=== PATIENT | female | born 1960 | race Caucasian/White ===

== ENCOUNTER 2016-06-30 05:33 | Day surgery (SDC) | payer MEDICAID ==
[2016-06-29 12:16] LABS: HEMATOCRIT 44.1 % (36.0-48.0); HEMOGLOBIN 14.6 g/dL (12-16); MCH 30.7 pg (26.0-34.0); MCHC 33.1 g/dL (31.0-37.0); MCV 92.6 fL (80.0-100.0); MEAN PLATELET VOLUME 10.3 fL (7.4-10.4); RBC 4.76 10x6/uL (4.00-5.40); RDW 12.7 % (11.5-14.5); WBC 8.5 10x3/uL (4.8-10.8)
[~2016-06-30] VITALS: Ht 177.8 cm; Wt 88.5 kg
[~2016-06-30 05:33] MED LIST: ADDERALL 20 MG20 M1 PO; BACLOFEN10 MG PO; DILAUDID2 MG PO; DIOVAN40 MG PO; DOXEPIN HCL10 MG PO; HYDROCODONE-APA1 TAB PO; KLONOPIN1 MG PO; MELATONIN 3 MG1 TAB PO; MULTI-DAY VITAM1 TAB PO; NIACIN100 MG; NORCO 10/325 TA1 TA1 PO; RESTORIL15 MG PO; SOMA350 MG PO; TOPAMAX50 MG; TOPAMAX50 MG PO; VICOPROFEN 7.5/1 TAB PO
[2016-06-30 07:49] VITALS: BP 110/76; Ht 177.8 cm; Wt 88.5 kg
[2016-06-30] MEDS ORDERED: MEPERIDINE HCL50 MG PO (10:12)
--- NOTE | 2016-06-30 10:31 | NUR ---
THE PATIENT REPORTS AN EVERYDAY PAIN OF A 7 ON THE 0-10 SCALE TO HER KNEE.
--- NOTE | 2016-06-30 10:35 | NUR ---
THE PATIENT IS NOW SEDATED AND SLEEPING REPORTING A 6 WHEN AWAKENED. SLURRING OF SPEECH ALSO NOTED
--- NOTE | 2016-06-30 10:37 | NUR ---
THE PATIENT REPORTS HER PAIN IS TOLERABLE
--- NOTE | 2016-06-30 13:25 | NUR ---
1130 IV DC WITH CATHER TIP INTACT CRUTCHES TRAINING DONE BY PT NOW WAITING ON CRUTCHES
--- NOTE | 2016-07-02 10:48 | OP ---
PATIENT NAME: JEWELL SAUCEDA MEDICAL RECORD: [id number] :56 LOCATION:D.OPS ADMISSION DATE: SURGEON: JOSELYN BARTLETT MD DATE OF OPERATION: 06/30/2016 PREOPERATIVE DIAGNOSIS: Lateral meniscus tear. POSTOPERATIVE DIAGNOSES: Lateral meniscus tear and medial meniscus tear. PROCEDURES: 1. Arthroscopic partial medial meniscectomy. 2. Arthroscopic partial lateral meniscectomy. SURGEON: Joselyn Bartlett MD. ANESTHESIA: General. INTRAOPERATIVE COMPLICATIONS: None. SUMMARY OF PATHOLOGIC FINDINGS: The patient's previously placed ACL graft was in excellent condition. The patient has complex tear of the posterior horn of the lateral meniscus. Furthermore, the patient has complex tear of the medial meniscus. OPERATIVE SUMMARY IN DETAIL: After obtaining the appropriate preoperative orthopedic surgery consents as well as anesthetic consultation, evaluation and clearance, the patient was brought to the operating room and placed on the operating table in supine position. After general laryngeal mask airway was administered, tourniquet was placed about the proximal aspect of the right lower extremity. Right lower extremity was then prepped and draped in routine sterile fashion. The leg was elevated and exsanguinated, tourniquet inflated to 350 mmHg. Routine inferolateral portal was established followed by superomedial portal and inferomedial portal. Diagnostic arthroscopy did show the above findings. Attention was first turned to the medial meniscus. Arthroscopic resector along with a meniscotome was utilized to debride the medial meniscus back to stable meniscal elements. Having completed this, some frayed edges of the graft were taken down and the knee was placed in the cqusmj-xk-sity position where the deep posterior horn of the lateral meniscus tear was noted. This was taken down serially and sequentially with a meniscotome as well as an arthroscopic resector. 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 Having completed this, a mild trochlear chondroplasty was done. The patient's knee was then injected with 30 cc of 0.25% Marcaine with epinephrine and 80 mg of Depo-Medrol. Arthroscopy portals were closed in routine interrupted fashion using 4-0 Prolene. Sterile dressings were applied. The patient was awakened, taken to recovery room in stable condition. All final needle and sponge counts were correct. TRANSINT:[id number] Voice Confirmation ID: [id number] DOCUMENT ID: [id number] OPERATIVE REPORT [id number] JEWELL SAUCEDA MD, JOSELYN MANUEL at 1048 CC: [id number] DICTATION DATE: 06/30/16 1016 MOTORCYCLE MECHANIC APPRENTICE: 06/30/16 1217 [facility] 06/30/16 [place] [id number] [place] [id number]
== END 2016-06-30 12:30 | disposition home or self-care (01) ==
LOC: D.OPS 05:33 → D.PAN 09:15 → D.OPS 09:30 → D.PAN 12:00 → D.OPS 12:30
PROVIDERS: Anesthesiology
DX: S83.231A Complex tear of medial meniscus, current injury, right knee, initial encounter (principal); S83.271A Complex tear of lateral meniscus, current injury, right knee, initial encounter

== ENCOUNTER 2016-10-30 17:18 | Emergency (ER) | payer MEDICAID ==
[2016-06-30 07:49] VITALS: BMI 28.0
[~2016-10-30 17:18] MED LIST changes: +MEPERIDINE HCL50 MG PO
== END 2016-10-30 20:11 | disposition home or self-care (01) ==
LOC: D.ER 17:18
DX: M25.50 Pain in unspecified joint (principal); F17.200 Nicotine dependence, unspecified, uncomplicated

== ENCOUNTER 2017-01-31 17:12 | Emergency (ER) | payer MEDICAID ==
[2016-06-30 07:49] VITALS: BMI 28.0
[2017-01-31 20:43] LABS: BASOPHILS 0.2 % (0-2); EOSINOPHILS 1.9 % (0-7); HEMATOCRIT 43.4 % (36.0-48.0); HEMOGLOBIN 14.6 g/dL (12-16); IMMATURE GRANULOCYTES 0.2 % (0-5); LYMPHOCYTES 23.2 % (15-50); MCH 30.7 pg (26.0-34.0); MCHC 33.6 g/dL (31.0-37.0); MCV 91.2 fL (80.0-100.0); MEAN PLATELET VOLUME 9.9 fL (7.4-10.4); MONOCYTES 7.7 % (2-11); NEUTROPHILS 66.8 % (40-80); PLATELET COUNT 223 10x3/uL (130-400); RBC 4.76 10x6/uL (4.00-5.40); RDW 12.3 % (11.5-14.5); WBC 8.4 10x3/uL (4.8-10.8)
[2017-01-31 20:44] LABS: APPEARANCE CLEAR (CLEAR); BILIRUBIN NEGATIVE (NEGATIVE); COLOR YELLOW (YELLOW); GLUCOSE NEGATIVE (NEGATIVE); KETONE NEGATIVE (NEGATIVE); LEUKOCYTE ESTERASE NEGATIVE (NEGATIVE); NITRITE NEGATIVE (NEGATIVE); PROTEIN NEGATIVE (NEGATIVE); SPECIFIC GRAVITY 1.015 (1.005-1.020); UROBILINOGEN NORMAL (NORMAL)
[2017-01-31 20:52] LABS: UDS - AMPHET NEGATIVE QUAL (NEGATIVE); UDS - BARB NEGATIVE QUAL (NEGATIVE); UDS - BENZO POSITIVE QUAL (NEGATIVE); UDS - COCAINE NEGATIVE QUAL (NEGATIVE); UDS - METH NEGATIVE QUAL (NEGATIVE); UDS - OPIATE NEGATIVE QUAL (NEGATIVE); UDS - PCP NEGATIVE QUAL (NEGATIVE); UDS - THC POSITIVE QUAL (NEGATIVE)
== END 2017-01-31 21:39 | disposition home or self-care (01) ==
LOC: D.ER 17:12
PROVIDERS: Physician Assistant Medical
DX: M25.561 Pain in right knee (principal); F17.200 Nicotine dependence, unspecified, uncomplicated

== ENCOUNTER 2017-02-06 12:00 | Emergency (ER) | payer MEDICAID | END 2017-02-06 13:10 | disposition home or self-care (01) | LOC: D.ER 12:00 | DX: F41.0 Panic disorder [episodic paroxysmal anxiety] (principal); J01.90 Acute sinusitis, unspecified; F17.200 Nicotine dependence, unspecified, uncomplicated ==

== ENCOUNTER 2017-03-31 12:51 | Emergency (ER) | payer MEDICAID ==
[2016-06-30 07:49] VITALS: BMI 28.0
== END 2017-03-31 17:28 | disposition home or self-care (01) ==
LOC: D.ER 12:51
DX: R50.9 Fever, unspecified (principal); J11.1 Influenza due to unidentified influenza virus with other respiratory manifestations; F17.200 Nicotine dependence, unspecified, uncomplicated

== ENCOUNTER 2017-04-02 20:03 | Emergency (ER) | payer MEDICAID ==
[2016-06-30 07:49] VITALS: BMI 28.0
== END 2017-04-02 22:14 | disposition home or self-care (01) ==
LOC: D.ER 20:03
DX: J11.1 Influenza due to unidentified influenza virus with other respiratory manifestations (principal); F17.200 Nicotine dependence, unspecified, uncomplicated

== ENCOUNTER 2017-04-09 18:07 | Emergency (ER) | payer MEDICAID ==
[2016-06-30 07:49] VITALS: BMI 28.0
== END 2017-04-09 21:51 | disposition home or self-care (01) ==
LOC: D.ER 18:07
DX: J20.9 Acute bronchitis, unspecified (principal); G40.909 Epilepsy, unspecified, not intractable, without status epilepticus; F98.8 Other specified behavioral and emotional disorders with onset usually occurring in childhood and adolescence

== ENCOUNTER → 2017-06-09 10:37 | Outpatient (CLI) | payer MEDICAID ==
[2016-06-30 07:49] VITALS: BMI 28.0
== END | disposition home or self-care (01) ==
LOC: D.MRI 06-05 11:00
DX: M25.562 Pain in left knee (principal)

== ENCOUNTER 2017-07-11 13:14 | Emergency (ER) | payer MEDICAID ==
[2016-06-30 07:49] VITALS: BMI 28.0
[2017-07-11 14:28] LABS: BASOPHILS 0.3 % (0-2); EOSINOPHILS 1.3 % (0-7); HEMOGLOBIN 15.8 g/dL (12-16); IMMATURE GRANULOCYTES 0.4 % (0-5); LYMPHOCYTES 26.5 % (15-50); MCH 30.6 pg (26.0-34.0); MCHC 34.3 g/dL (31.0-37.0); MCV 89.1 fL (80.0-100.0); MEAN PLATELET VOLUME 10.5 fL (7.4-10.4); MONOCYTES 8.5 % (2-11); PLATELET COUNT 261 10x3/uL (130-400); RBC 5.16 10x6/uL (4.00-5.40); RDW 12.8 % (11.5-14.5); WBC 7.9 10x3/uL (4.8-10.8)
[2017-07-11 14:41] LABS: ANION GAP 11.1 mmol/L (8-16); BILIRUBIN - TOTAL 0.44 mg/dL (0.2-1.3); CALCIUM 9.1 mg/dL (8.5-10.1); CARBON DIOXIDE 29.9 mmol/L (21.0-32.0); PROTEIN - SERUM 8.4 g/dL (6.4-8.2)
[2017-07-11 15:47] LABS: APPEARANCE CLEAR (CLEAR); BILIRUBIN NEGATIVE (NEGATIVE); COLOR YELLOW (YELLOW); GLUCOSE NEGATIVE (NEGATIVE); KETONE NEGATIVE (NEGATIVE); NITRITE NEGATIVE (NEGATIVE); PROTEIN TRACE mg/dL (NEGATIVE); SPECIFIC GRAVITY 1.015 (1.005-1.020); UROBILINOGEN NORMAL (NORMAL)
[2017-07-11 15:48] LABS: BACTERIA MODERATE /hpf (NONE SEEN); EPITHELIAL CELLS 0-5 /hpf (0-5); RED CELLS - URINE 0-5 /hpf (0-5); WHITE CELLS - URINE 0-5 /hpf (0-5)
== END 2017-07-11 19:15 | disposition home or self-care (01) ==
LOC: D.ER 13:14
PROVIDERS: Family Medicine
DX: R10.11 Right upper quadrant pain (principal); F98.8 Other specified behavioral and emotional disorders with onset usually occurring in childhood and adolescence; F17.200 Nicotine dependence, unspecified, uncomplicated

== ENCOUNTER → 2017-08-04 09:29 | Outpatient (CLI) | payer MEDICAID ==
[2016-06-30 07:49] VITALS: BMI 28.0
== END | disposition home or self-care (01) ==
LOC: D.NM 07-28 08:30
DX: R10.11 Right upper quadrant pain (principal)

== ENCOUNTER 2017-09-13 16:43 | Emergency (ER) | payer MEDICAID ==
[2016-06-30 07:49] VITALS: BMI 28.0
== END 2017-09-13 18:58 | disposition home or self-care (01) ==
LOC: D.ER 16:43
DX: Z86.69 Personal history of other diseases of the nervous system and sense organs (principal); R51 Headache; F98.8 Other specified behavioral and emotional disorders with onset usually occurring in childhood and adolescence; F17.200 Nicotine dependence, unspecified, uncomplicated

== ENCOUNTER 2017-09-27 21:11 | Emergency (ER) | payer MEDICAID ==
[2016-06-30 07:49] VITALS: BMI 28.0
== END 2017-09-27 23:30 | disposition home or self-care (01) ==
LOC: D.ER 21:11
DX: S50.862A Insect bite (nonvenomous) of left forearm, initial encounter (principal); W57.XXXA Bitten or stung by nonvenomous insect and other nonvenomous arthropods, initial encounter; Y93.89 Activity, other specified; Y92.89 Other specified places as the place of occurrence of the external cause; G40.909 Epilepsy, unspecified, not intractable, without status epilepticus

== ENCOUNTER 2017-11-17 16:43 | Emergency (ER) | payer MEDICAID ==
[~2017-11-17] VITALS: Ht 177.8 cm; Wt 84.1 kg
[2017-11-17 17:16] VITALS: Ht 177.8 cm; Wt 84.1 kg
[2017-11-17 18:11] LABS: BASOPHILS 0.3 % (0-2); EOSINOPHILS 1.3 % (0-7); HEMATOCRIT 42.3 % (36.0-48.0); IMMATURE GRANULOCYTES 0.4 % (0-5); LYMPHOCYTES 28.7 % (15-50); MCH 31.4 pg (26.0-34.0); MCHC 35.5 g/dL (31.0-37.0); MCV 88.7 fL (80.0-100.0); MEAN PLATELET VOLUME 10.3 fL (7.4-10.4); MONOCYTES 9.5 % (2-11); NEUTROPHILS 59.8 % (40-80); PLATELET COUNT 263 10x3/uL (130-400); RBC 4.77 10x6/uL (4.00-5.40); RDW 12.4 % (11.5-14.5); WBC 11.4 10x3/uL (4.8-10.8)
[2017-11-17 18:43] LABS: ALBUMIN 3.9 g/dL (3.4-5.0); ALKALINE PHOSPHATASE 107 U/L (46-116); ALT (SGPT) 38 U/L (10-68); BILIRUBIN - TOTAL 0.52 mg/dL (0.2-1.3); CALC OSMOLALITY 287 mosm/kg (275-300); CALCIUM 8.9 mg/dL (8.5-10.1); CARBON DIOXIDE 28.1 mmol/L (21.0-32.0); CHLORIDE - SERUM 104 mmol/L (98-107); CREATININE - SERUM 1.2 mg/dL (0.6-1.3); GLUCOSE 126 mg/dL (74-106); POTASSIUM - SERUM 3.6 mmol/L (3.5-5.1); SODIUM 142 mmol/L (136-145); UREA NITROGEN 20 mg/dL (7-18); eGFR NON AFRICAN AMERICAN 49 mL/min (90-120)
[2017-11-17 18:50] LABS: TROPONIN-I < 0.017 ng/mL (0.000-0.060)
[2017-11-17 19:04] LABS: APPEARANCE CLEAR (CLEAR); BILIRUBIN NEGATIVE (NEGATIVE); COLOR YELLOW (YELLOW); GLUCOSE NEGATIVE (NEGATIVE); KETONE NEGATIVE (NEGATIVE); NITRITE NEGATIVE (NEGATIVE); PROTEIN TRACE mg/dL (NEGATIVE); UROBILINOGEN NORMAL (NORMAL)
[2017-11-17 19:05] LABS: BACTERIA MODERATE /hpf (NONE SEEN); EPITHELIAL CELLS 0-5 /hpf (0-5); RED CELLS - URINE 0-5 /hpf (0-5); WHITE CELLS - URINE 0-5 /hpf (0-5)
[2017-11-17 20:15] VITALS: BP 150/78
== END 2017-11-17 20:13 | disposition home or self-care (01) ==
LOC: D.ER 16:43
PROVIDERS: Emergency Medicine
DX: R07.81 Pleurodynia (principal); F17.200 Nicotine dependence, unspecified, uncomplicated; G40.909 Epilepsy, unspecified, not intractable, without status epilepticus; Z91.14 Patient's other noncompliance with medication regimen

== ENCOUNTER 2017-11-25 18:18 | Emergency (ER) | payer MEDICAID ==
[~2017-11-25] VITALS: Ht 177.8 cm; Wt 81.8 kg
[2017-11-25 18:51] VITALS: Ht 177.8 cm; Wt 81.8 kg
[2017-11-25 21:33] LABS: BASOPHILS 0.2 % (0-2); EOSINOPHILS 1.4 % (0-7); HEMATOCRIT 42.2 % (36.0-48.0); HEMOGLOBIN 14.5 g/dL (12-16); IMMATURE GRANULOCYTES 0.2 % (0-5); LYMPHOCYTES 30.2 % (15-50); MCH 30.3 pg (26.0-34.0); MCHC 34.4 g/dL (31.0-37.0); MCV 88.3 fL (80.0-100.0); MEAN PLATELET VOLUME 10.5 fL (7.4-10.4); MONOCYTES 9.3 % (2-11); NEUTROPHILS 58.7 % (40-80); PLATELET COUNT 216 10x3/uL (130-400); RBC 4.78 10x6/uL (4.00-5.40); RDW 12.3 % (11.5-14.5); WBC 9.1 10x3/uL (4.8-10.8)
[2017-11-25 21:46] LABS: ALBUMIN 3.5 g/dL (3.4-5.0); ALKALINE PHOSPHATASE 97 U/L (46-116); ALT (SGPT) 22 U/L (10-68); BILIRUBIN - TOTAL 0.29 mg/dL (0.2-1.3); CALC OSMOLALITY 282 mosm/kg (275-300); CALCIUM 8.8 mg/dL (8.5-10.1); CARBON DIOXIDE 29.3 mmol/L (21.0-32.0); CHLORIDE - SERUM 105 mmol/L (98-107); GLUCOSE 104 mg/dL (74-106); POTASSIUM - SERUM 3.6 mmol/L (3.5-5.1); PROTEIN - SERUM 7.4 g/dL (6.4-8.2); SODIUM 141 mmol/L (136-145); UREA NITROGEN 17 mg/dL (7-18); eGFR NON AFRICAN AMERICAN 60 mL/min (90-120)
[2017-11-25 21:58] LABS: AMYLASE - SERUM 44 U/L (25-115); CKMB 0.9 U/L (0.0-3.6); LIPASE 77 U/L (73-393); TROPONIN-I < 0.017 ng/mL (0.000-0.060)
[2017-11-25 22:04] LABS: APPEARANCE CLEAR (CLEAR); BILIRUBIN NEGATIVE (NEGATIVE); COLOR YELLOW (YELLOW); GLUCOSE NEGATIVE (NEGATIVE); KETONE NEGATIVE (NEGATIVE); NITRITE NEGATIVE (NEGATIVE); PROTEIN TRACE mg/dL (NEGATIVE); UROBILINOGEN NORMAL (NORMAL)
[2017-11-25 22:07] LABS: BACTERIA MODERATE /hpf (NONE SEEN); EPITHELIAL CELLS 0-5 /hpf (0-5); MUCUS <1+ /lpf (NONE SEEN); RED CELLS - URINE 0-5 /hpf (0-5); WHITE CELLS - URINE 0-5 /hpf (0-5)
[2017-11-25 22:12] LABS: UDS - AMPHET NEGATIVE QUAL (NEGATIVE); UDS - BARB NEGATIVE QUAL (NEGATIVE); UDS - BENZO POSITIVE QUAL (NEGATIVE); UDS - COCAINE NEGATIVE QUAL (NEGATIVE); UDS - OPIATE NEGATIVE QUAL (NEGATIVE); UDS - PCP NEGATIVE QUAL (NEGATIVE); UDS - THC NEGATIVE QUAL (NEGATIVE)
[2017-11-25] MEDS ORDERED: OXYCODONE HCL5 MG PO (22:24)
[2017-11-25 22:51] VITALS: BP 141/82
== END 2017-11-25 23:03 | disposition home or self-care (01) ==
LOC: D.ER 18:18
PROVIDERS: Family Medicine
DX: S22.31XA Fracture of one rib, right side, initial encounter for closed fracture (principal); W19.XXXA Unspecified fall, initial encounter; Y93.89 Activity, other specified; Y92.019 Unspecified place in single-family (private) house as the place of occurrence of the external cause; I10 Essential (primary) hypertension

== ENCOUNTER 2017-12-04 13:38 | Emergency (ER) | payer MEDICAID ==
[~2017-12-04] VITALS: Ht 177.8 cm; Wt 81.8 kg
[~2017-12-04 13:38] MED LIST changes: +OXYCODONE HCL5 MG PO
[2017-12-04 13:59] VITALS: Ht 177.8 cm; Wt 81.8 kg
[2017-12-04] MEDS ORDERED: NYSTATIN ORAL SU5 ML PO (18:47)
[2017-12-04 21:06] VITALS: BP 121/69
== END 2017-12-04 19:31 | disposition home or self-care (01) ==
LOC: D.ER 13:38
DX: B37.0 Candidal stomatitis (principal); F17.200 Nicotine dependence, unspecified, uncomplicated

== ENCOUNTER 2018-01-04 23:01 | Emergency (ER) | payer MEDICAID ==
[~2018-01-04] VITALS: Ht 177.8 cm; Wt 79.5 kg
[~2018-01-04 23:01] MED LIST changes: +NYSTATIN ORAL SU5 ML PO
[2018-01-04 23:21] VITALS: Ht 177.8 cm; Wt 79.5 kg
[2018-01-05] MEDS ORDERED: ULTRAM50 MG PO (01:57)
[2018-01-05] MEDS ORDERED: ROBAXIN500 MG PO (01:57)
[2018-01-05 02:06] VITALS: BP 124/62
== END 2018-01-05 02:06 | disposition home or self-care (01) ==
LOC: D.ER 23:01
DX: M25.461 Effusion, right knee (principal); S80.01XA Contusion of right knee, initial encounter; W18.30XA Fall on same level, unspecified, initial encounter; Y93.89 Activity, other specified; Y92.010 Kitchen of single-family (private) house as the place of occurrence of the external cause; F17.200 Nicotine dependence, unspecified, uncomplicated

== ENCOUNTER 2018-02-11 10:51 | Emergency (ER) | payer MEDICAID ==
[~2018-02-11] VITALS: Ht 177.8 cm; Wt 81.8 kg
[~2018-02-11 10:51] MED LIST changes: +ROBAXIN500 MG PO; +ULTRAM50 MG PO
[2018-02-11 10:55] VITALS: Ht 177.8 cm; Wt 81.8 kg
[2018-02-11] MEDS ORDERED: PHENERGAN DM SYR5 ML PO (12:40)
[2018-02-11] MEDS ORDERED: VIBRAMYCIN 100100 MG PO (12:40)
[2018-02-11] MEDS ORDERED: VENTOLIN HFA18 GM INH (12:40)
[2018-02-11 13:25] VITALS: BP 132/68
== END 2018-02-11 13:27 | disposition home or self-care (01) ==
LOC: D.ER 10:51
DX: G43.909 Migraine, unspecified, not intractable, without status migrainosus (principal); R09.89 Other specified symptoms and signs involving the circulatory and respiratory systems; M79.1 Myalgia; R11.0 Nausea; G40.909 Epilepsy, unspecified, not intractable, without status epilepticus; F17.200 Nicotine dependence, unspecified, uncomplicated

== ENCOUNTER 2018-02-26 09:15 | Day surgery (SDC) | payer MEDICAID ==
[2018-02-23 12:10] LABS: HEMATOCRIT 42.6 % (36.0-48.0); HEMOGLOBIN 14.8 g/dL (12-16); MCH 30.5 pg (26.0-34.0); MCHC 34.7 g/dL (31.0-37.0); MCV 87.8 fL (80.0-100.0); MEAN PLATELET VOLUME 10.2 fL (7.4-10.4); RBC 4.85 10x6/uL (4.00-5.40); RDW 12.8 % (11.5-14.5); WBC 8.1 10x3/uL (4.8-10.8)
[~2018-02-26] VITALS: Ht 177.8 cm; Wt 81.6 kg
--- NOTE | ~2018-02-26 | OP ---
PATIENT NAME: JEWELL DAVISON MEDICAL RECORD: [id number] :56 LOCATION:D.OPS ADMISSION DATE: SURGEON: JOSELYN BARTLETT MD DATE OF OPERATION: 02/26/2018 PREOPERATIVE DIAGNOSES: 1. Medial meniscus tear of the right knee. 2. Lateral meniscus tear of the right knee. POSTOPERATIVE DIAGNOSES: 1. Medial meniscus tear of the right knee. 2. Lateral meniscus tear of the right knee. PROCEDURE: 1. Arthroscopic partial medial meniscectomy of the right knee. 2. Arthroscopic partial lateral meniscectomy of the right knee. SURGEON: Joselyn Bartlett MD ANESTHESIA: General. INTRAOPERATIVE COMPLICATIONS: None. SUMMARY OF PATHOLOGIC FINDINGS: Consistent with the patient's preoperative MRI, the patient had both the medial and lateral meniscal tears, medial being complex in nature, the lateral being more of a radial beak type tear. OPERATIVE SUMMARY IN DETAIL: After obtaining the appropriate preoperative orthopedic surgery consent as well as anesthetic consultation, evaluation and clearance, the patient was brought to the operating room and placed on the operating table in supine position. After general laryngeal mask airway was administered, tourniquet was placed on the proximal aspect of the right lower extremity. Right lower extremity was then prepped and draped in routine sterile fashion. The leg was elevated and exsanguinated, tourniquet was inflated to 350 mmHg. Routine inferolateral portal was established followed by superomedial portal and inferomedial portal. Diagnostic arthroscopy revealed the above findings. Attention was first turned to the medial meniscus. Combination of an arthroscopic meniscotome as well as an arthroscopic shaver was utilized to debride the meniscus back to stable meniscal elements with good retained meniscal elements. Mild grade II and III chondromalacia was seen on the medial compartment. The knee was then placed in the iimsip-ha-lwad position while there was paucity of chondromalacia over here. Combination of arthroscopic meniscotome as well as a resector were utilized to debride the lateral meniscus in the posterolateral aspect back to stable meniscal elements. Having completed this, the knee was insufflated with 30 cc of 0.25% Marcaine with epinephrine and 80 mg of Depo-Medrol. Arthroscopy portals were closed in routine interrupted fashion using 4-0 Prolene. Sterile dressings were applied. The patient was awakened, taken to recovery room in stable condition. All final needle and sponge counts were correct. TRANSINT:[id number] Voice Confirmation ID: [id number] DOCUMENT ID: [id number] OPERATIVE REPORT [id number] JEWELL DAVISON MD, JOSELYN MANUEL at 1351 CC: [id number] DICTATION DATE: 03/08/18 1047 HPLC CHEMIST: 03/08/18 1138 [facility] 02/26/18 [place] [id number] [place] [id number]
[~2018-02-26 09:15] MED LIST changes: +PHENERGAN DM SYR5 ML PO; +VENTOLIN HFA18 GM INH; +VIBRAMYCIN 100100 MG PO
[2018-02-26 09:48] VITALS: BP 125/86; Ht 177.8 cm; Wt 81.6 kg
[2018-02-26] MEDS ORDERED: DEMEROL100 MG PO (13:50)
== END 2018-02-26 15:25 | disposition home or self-care (01) ==
LOC: D.OPS 09:15 → D.PAN 14:30 → D.OPS 15:25
PROVIDERS: Anesthesiology
DX: S83.231A Complex tear of medial meniscus, current injury, right knee, initial encounter (principal); S83.281A Other tear of lateral meniscus, current injury, right knee, initial encounter; Z01.812 Encounter for preprocedural laboratory examination

== ENCOUNTER 2018-05-11 16:09 | Emergency (ER) | payer MEDICAID ==
[~2018-05-11] VITALS: Ht 177.8 cm; Wt 72.7 kg
[~2018-05-11 16:09] MED LIST changes: +DEMEROL100 MG PO
[2018-05-11 16:36] VITALS: Ht 177.8 cm; Wt 72.7 kg
[2018-05-11 17:14] LABS: BASOPHILS 0.3 % (0-2); EOSINOPHILS 0.8 % (0-7); HEMATOCRIT 49.2 % (36.0-48.0); HEMOGLOBIN 17.1 g/dL (12-16); IMMATURE GRANULOCYTES 0.5 % (0-5); LYMPHOCYTES 24.8 % (15-50); MCH 30.7 pg (26.0-34.0); MCHC 34.8 g/dL (31.0-37.0); MCV 88.3 fL (80.0-100.0); MEAN PLATELET VOLUME 10.9 fL (7.4-10.4); MONOCYTES 9.9 % (2-11); NEUTROPHILS 63.7 % (40-80); PLATELET COUNT 269 10x3/uL (130-400); RBC 5.57 10x6/uL (4.00-5.40); WBC 11.1 10x3/uL (4.8-10.8)
[2018-05-11 17:36] LABS: APPEARANCE HAZY (CLEAR); BILIRUBIN NEGATIVE (NEGATIVE); COLOR YELLOW (YELLOW); GLUCOSE NEGATIVE (NEGATIVE); KETONE NEGATIVE (NEGATIVE); NITRITE NEGATIVE (NEGATIVE); PROTEIN TRACE mg/dL (NEGATIVE); SPECIFIC GRAVITY 1.025 (1.005-1.020); UROBILINOGEN NORMAL (NORMAL)
[2018-05-11 17:38] LABS: ALBUMIN 3.9 g/dL (3.4-5.0); ANION GAP 16.6 mmol/L (8-16); BACTERIA MANY /hpf (NONE SEEN); BILIRUBIN - TOTAL 0.46 mg/dL (0.2-1.3); CALCIUM 9.7 mg/dL (8.5-10.1); CARBON DIOXIDE 26.3 mmol/L (21.0-32.0); CREATININE - SERUM 1.2 mg/dL (0.6-1.3); EPITHELIAL CELLS 0-5 /hpf (0-5); POTASSIUM - SERUM 3.9 mmol/L (3.5-5.1); PROTEIN - SERUM 8.5 g/dL (6.4-8.2); RED CELLS - URINE 0-5 /hpf (0-5)
[2018-05-11] MEDS ORDERED: ULTRAM50 MG PO (21:03)
[2018-05-11 21:34] VITALS: BP 138/82
== END 2018-05-11 21:34 | disposition home or self-care (01) ==
LOC: D.ER 16:09
PROVIDERS: Family Medicine
DX: R10.11 Right upper quadrant pain (principal); G40.909 Epilepsy, unspecified, not intractable, without status epilepticus; F17.200 Nicotine dependence, unspecified, uncomplicated

== ENCOUNTER 2018-11-04 18:15 | Emergency (ER) | payer MEDICAID ==
[~2018-11-04] VITALS: Ht 177.8 cm; Wt 81.8 kg
[2018-11-04 18:44] VITALS: Ht 177.8 cm; Wt 81.8 kg
[2018-11-04] MEDS ORDERED: KLONOPIN1 MG PO (20:01)
[2018-11-04 20:20] LABS: BASOPHILS 0.2 % (0-2); EOSINOPHILS 1.1 % (0-7); HEMATOCRIT 41.1 % (36.0-48.0); HEMOGLOBIN 14.1 g/dL (12-16); IMMATURE GRANULOCYTES 0.2 % (0-5); LYMPHOCYTES 27.9 % (15-50); MCH 30.3 pg (26.0-34.0); MCHC 34.3 g/dL (31.0-37.0); MCV 88.2 fL (80.0-100.0); MEAN PLATELET VOLUME 10.4 fL (7.4-10.4); MONOCYTES 9.5 % (2-11); NEUTROPHILS 61.1 % (40-80); PLATELET COUNT 230 10x3/uL (130-400); RBC 4.66 10x6/uL (4.00-5.40); RDW 12.6 % (11.5-14.5); WBC 8.8 10x3/uL (4.8-10.8)
[2018-11-04 20:48] LABS: ALBUMIN 3.4 g/dL (3.4-5.0); ANION GAP 13.4 mmol/L (8-16); BILIRUBIN - TOTAL 0.36 mg/dL (0.2-1.3); CALCIUM 8.6 mg/dL (8.5-10.1); CARBON DIOXIDE 26.9 mmol/L (21.0-32.0); CREATININE - SERUM 0.9 mg/dL (0.6-1.3); POTASSIUM - SERUM 3.3 mmol/L (3.5-5.1); PROTEIN - SERUM 6.8 g/dL (6.4-8.2)
[2018-11-04 21:27] LABS: UDS - AMPHET NEGATIVE QUAL (NEGATIVE); UDS - BARB NEGATIVE QUAL (NEGATIVE); UDS - BENZO POSITIVE QUAL (NEGATIVE); UDS - COCAINE NEGATIVE QUAL (NEGATIVE); UDS - OPIATE NEGATIVE QUAL (NEGATIVE); UDS - PCP NEGATIVE QUAL (NEGATIVE); UDS - THC POSITIVE QUAL (NEGATIVE)
[2018-11-04 21:35] LABS: APPEARANCE CLEAR (CLEAR); BILIRUBIN NEGATIVE (NEGATIVE); COLOR YELLOW (YELLOW); GLUCOSE NEGATIVE (NEGATIVE); KETONE NEGATIVE (NEGATIVE); NITRITE NEGATIVE (NEGATIVE); PROTEIN NEGATIVE (NEGATIVE); UROBILINOGEN NORMAL (NORMAL)
[2018-11-04 21:37] LABS: BACTERIA FEW /hpf (NONE SEEN); EPITHELIAL CELLS 0-5 /hpf (0-5); MUCUS >1+ /lpf (NONE SEEN); RED CELLS - URINE 0-5 /hpf (0-5); WHITE CELLS - URINE 0-5 /hpf (0-5)
[2018-11-04 21:42] VITALS: BP 141/72
== END 2018-11-04 21:42 | disposition home or self-care (01) ==
LOC: D.ER 18:15
PROVIDERS: Family Medicine
DX: G40.89 Other seizures (principal)

== ENCOUNTER 2019-02-22 20:01 | Emergency (ER) | payer SELFPAY ==
[~2019-02-22] VITALS: Ht 177.8 cm; Wt 79.5 kg
[2019-02-22 20:07] VITALS: Ht 177.8 cm; Wt 79.5 kg
[2019-02-22] MEDS ORDERED: ULTRAM50 MG PO (21:55)
[2019-02-22 23:03] VITALS: BP 129/77
== END 2019-02-22 23:04 | disposition home or self-care (01) ==
LOC: D.ER 20:01
DX: S83.92XA Sprain of unspecified site of left knee, initial encounter (principal); W19.XXXA Unspecified fall, initial encounter

== ENCOUNTER 2019-03-04 21:02 | Emergency (ER) | payer SELFPAY ==
[~2019-03-04] VITALS: Ht 177.8 cm; Wt 86.4 kg
[2019-03-04 21:08] VITALS: Ht 177.8 cm; Wt 86.4 kg
[2019-03-04 21:59] LABS: BASOPHILS 0.6 % (0-2); EOSINOPHILS 2.1 % (0-7); HEMATOCRIT 42.5 % (36.0-48.0); HEMOGLOBIN 14.4 g/dL (12-16); IMMATURE GRANULOCYTES 0.1 % (0-5); LYMPHOCYTES 34.5 % (15-50); MCH 30.8 pg (26.0-34.0); MCHC 33.9 g/dL (31.0-37.0); MCV 90.8 fL (80.0-100.0); MEAN PLATELET VOLUME 9.8 fL (7.4-10.4); MONOCYTES 6.9 % (2-11); NEUTROPHILS 55.8 % (40-80); PLATELET COUNT 279 10x3/uL (130-400); RBC 4.68 10x6/uL (4.00-5.40); WBC 7.1 10x3/uL (4.8-10.8)
[2019-03-04 22:09] LABS: ALBUMIN 3.4 g/dL (3.4-5.0); BILIRUBIN - TOTAL 0.35 mg/dL (0.2-1.3); CALCIUM 8.7 mg/dL (8.5-10.1); CARBON DIOXIDE 31.8 mmol/L (21.0-32.0); CREATININE - SERUM 0.9 mg/dL (0.6-1.3); POTASSIUM - SERUM 3.8 mmol/L (3.5-5.1); PROTEIN - SERUM 7.3 g/dL (6.4-8.2)
[2019-03-05] MEDS ORDERED: ULTRAM50 MG PO (00:04)
[2019-03-05 00:45] VITALS: BP 141/79
== END 2019-03-05 00:45 | disposition home or self-care (01) ==
LOC: D.ER 21:02
PROVIDERS: Family Medicine
DX: M25.562 Pain in left knee (principal); F17.210 Nicotine dependence, cigarettes, uncomplicated; I10 Essential (primary) hypertension

== ENCOUNTER 2019-05-23 23:54 | Inpatient (IN) | payer MEDICAID ==
[~2019-05-23] VITALS: Ht 177.8 cm; Wt 77.3 kg
--- NOTE | 2019-05-24 03:45 | NUR ---
RECEIVED PT FROM ER VIA W/C ACCOMPANIED BY STAFF. STATES SHE IS LIVING WITH HER SON AT PRESENT AND TOOK HER HUTTON OUTSIDE TO USE THE BATHROOM AND SLIPPED ON THE WET STEPS AND FELL. LT ANKLE HAS SPLINT NOTED. C/O PAIN IN LT ANKLE 9. JUST RECEIVED MORPHINE IN ER. SLIGHTLY ANXIOUS. PT IS A SMOKER. INFORMED OF NPO STATUS AND SHE VERBALIZED UNDERSTANDING. U/A OBTAINED AT THIS TIME. ASSIST X1 TO BSC. [place] AND BED ALARM ON FOR PT SAFETY. NS @ 75 ML/HR INFUSING IN RT FOREARM. RESP EVEN AND NONLABORED. ALERT AND ORIENTED X4. TALKATIVE WITH STAFF AND IN GOOD SPIRITS. CL IN REACH.
[2019-05-24 04:11] VITALS: BP 136/69; Ht 177.8 cm; Wt 77.3 kg
--- NOTE | 2019-05-24 06:02 | NUR ---
C/O PAIN IN RT ANKLE RATING 10. MEDICATED WITH MORPHINE AND ZOFRAN. CL IN REACH
[2019-05-24 06:20] LABS: BASOPHILS 0.1 % (0-2); EOSINOPHILS 1.8 % (0-7); HEMATOCRIT 40.6 % (36.0-48.0); HEMOGLOBIN 13.4 g/dL (12-16); IMMATURE GRANULOCYTES 0.1 % (0-5); LYMPHOCYTES 29.1 % (15-50); MCH 29.6 pg (26.0-34.0); MCV 89.8 fL (80.0-100.0); MEAN PLATELET VOLUME 10.1 fL (7.4-10.4); MONOCYTES 8.6 % (2-11); NEUTROPHILS 60.3 % (40-80); RBC 4.52 10x6/uL (4.00-5.40); WBC 10.2 10x3/uL (4.8-10.8)
[2019-05-24 06:30] LABS: PLATELET COUNT 217 10x3/uL (130-400)
[2019-05-24 06:40] LABS: APPEARANCE CLEAR (CLEAR); BILIRUBIN NEGATIVE (NEGATIVE); COLOR STRAW (YELLOW); GLUCOSE NEGATIVE (NEGATIVE); KETONE NEGATIVE (NEGATIVE); NITRITE NEGATIVE (NEGATIVE); PROTEIN TRACE mg/dL (NEGATIVE); SPECIFIC GRAVITY 1.015 (1.005-1.020); UROBILINOGEN NORMAL (NORMAL)
[2019-05-24 06:41] LABS: BACTERIA FEW /hpf (NEGATIVE); EPITHELIAL CELLS 0-5 /hpf (0-5); RED CELLS - URINE 0-5 /hpf (0-5); WHITE CELLS - URINE 0-5 /hpf (NEGATIVE)
[2019-05-24 06:50] LABS: UDS - AMPHET NEGATIVE QUAL (NEGATIVE); UDS - BARB NEGATIVE QUAL (NEGATIVE); UDS - BENZO POSITIVE QUAL (NEGATIVE); UDS - COCAINE NEGATIVE QUAL (NEGATIVE); UDS - OPIATE POSITIVE QUAL (NEGATIVE); UDS - PCP NEGATIVE QUAL (NEGATIVE); UDS - THC POSITIVE QUAL (NEGATIVE)
[2019-05-24 07:05] LABS: ALBUMIN 3.4 g/dL (3.4-5.0); ANION GAP 17.2 mmol/L (8-16); BILIRUBIN - TOTAL 0.31 mg/dL (0.2-1.3); CALCIUM 8.2 mg/dL (8.5-10.1); CARBON DIOXIDE 24.8 mmol/L (21.0-32.0); PROTEIN - SERUM 6.8 g/dL (6.4-8.2)
--- NOTE | 2019-05-24 08:21 | NUR ---
PATIENT RECIEVED FROM PREVIOUS NURSE RESTING IN BED. ADMITTED WITH LEFT ANKLE FX FROM FALL. SPLINT AND BRANDEE TO LEFT ANKLE. PAIN TOLERATED WITH MORPHINE. CL IN REACH. NPO FOR POSSIBLE PROCEDURE LATER TODAY.
[2019-05-24 08:49] VITALS: BP 108/54
[2019-05-24 12:49] VITALS: BP 138/65
[2019-05-24 17:50] VITALS: BP 137/71
--- NOTE | 2019-05-24 18:50 | NUR ---
PATIENT RESTING WITH ICE TO LEFT LEG, SPLINT AND BRANDEE WRAP INTACT. FAMILY AT BEDSIDE. PAIN TOLERATED WITH MORPHINE
[2019-05-24 20:00] VITALS: BP 105/56
--- NOTE | 2019-05-24 20:00 | NUR ---
PT SITTING UP IN BED WITHOUT DISTRESS, AOX4. IV RIGHT FA SL. STATES PAIN IN LEFT ANKLE /, GAVE MORPHINE ORDERED. LEFT ANKLE SPLINTED, WRAPPED IN BRANDEE WRAP, ELEVATED ON PILLOW, ICE PACK APPLIED. REQUESTING SOMETHING TO HELP SLEEP. SPOKE WITH JAE NEWSOME APN. ORDERS FOR 9MG MELATONIN QHSP AND 25MG BENADRYL IV NOW. WILL GIVE ORDERED. WILL CTM
[2019-05-25 04:00] VITALS: BP 98/59
--- NOTE | 2019-05-25 04:34 | NUR ---
PT CALLED FOR PAIN MEDICATION X2, EACH TIME THIS NURSE ENTERS ROOM PT IS ASLEEP AND DOES NOT EASILY WAKE UP. BY THE TIME THIS NURSE PREPARES MEDICATION SHE IS ASLEEP WITH BLANKET OVER HER HEAD. WASTED PAIN MEDICATION AT THIS TIME. WILL RUBIOM
[2019-05-25 06:05] LABS: BASOPHILS 0.3 % (0-2); EOSINOPHILS 3.1 % (0-7); HEMATOCRIT 38.9 % (36.0-48.0); HEMOGLOBIN 12.8 g/dL (12-16); IMMATURE GRANULOCYTES 0.1 % (0-5); LYMPHOCYTES 34.2 % (15-50); MCH 29.8 pg (26.0-34.0); MCHC 32.9 g/dL (31.0-37.0); MCV 90.7 fL (80.0-100.0); MEAN PLATELET VOLUME 10.6 fL (7.4-10.4); MONOCYTES 9.9 % (2-11); NEUTROPHILS 52.4 % (40-80); PLATELET COUNT 209 10x3/uL (130-400); RBC 4.29 10x6/uL (4.00-5.40); RDW 13.2 % (11.5-14.5)
[2019-05-25 06:06] LABS: WBC 7.1 10x3/uL (4.8-10.8)
[2019-05-25 06:29] LABS: ANION GAP 12.5 mmol/L (8-16); CALCIUM 8.3 mg/dL (8.5-10.1); CARBON DIOXIDE 28.1 mmol/L (21.0-32.0); CREATININE - SERUM 0.9 mg/dL (0.6-1.3); POTASSIUM - SERUM 3.6 mmol/L (3.5-5.1)
--- NOTE | 2019-05-25 09:00 | NUR ---
ALERT AND ORIENTED WITH SOFT CAST PLACED TO LEFT ANKLE WITH CAP REFILL LESS THAN 3 SEC. AMBULATED WITH THERAPY IN HALLWAY WITH WALKER. MORPHINE GIVEN FOR PAIN #9 AND EFFECTIVE. ENCOURAGED TO USE CALL LIGHT FOR ASSIST.IV TO RT. F/A W/O ANY S/S OF INFECTION/INFILTRATION.
[2019-05-25] MEDS ORDERED: DILAUDID4 MG PO (10:02)
[2019-05-25] MEDS ORDERED: VISTARIL50 MG PO (10:03)
[2019-05-25 10:12] VITALS: BP 120/66
[2019-05-25 13:40] VITALS: BP 145/76
[2019-05-25 16:45] VITALS: BP 116/73
--- NOTE | 2019-05-25 19:00 | NUR ---
PATIENT RESTING IN BED WITH NO S/S OF DISTRESS. PATIENT REQUESTED A DOSE OF BENADRYL WITH HER MELATONIN TO HELP HER SLEEP AGAIN TONIGHT. I TOLD THE PATIENT I WOULD CHECK ORDERS AND IF I NEEDED TO I WOULD CONTACT THE SIMULATION SOFTWARE ENGINEER. PATIENT DENIES OTHER NEEDS AT THIS TIME. PATIENT'S LEFT LEG ELEVATED. BED IN LOWEST POSITION AND CALL LIGHT WITHIN REACH. ENCOURAGED THE PATIENT TO CALL IF SHE HAS NEEDS. WILL CONTINUE TO MONITOR.
--- NOTE | 2019-05-25 19:54 | NUR ---
SHWETHA SAHU IN REGARDS TO PATIENT'S REQUEST FOR BENADRYL
[2019-05-25 20:00] VITALS: BP 140/82
[2019-05-25 23:30] VITALS: BP 106/58
--- NOTE | 2019-05-26 01:35 | NUR ---
PATIENT C/O BURNING PAIN TO LEFT ANKLE. APPLIED ICE TO ANKLE AND ASKED THE PATIENT TO CALL IF HER PAIN BECOMES MORE SEVERE. PATIENT VERBALIZED UNDERSTANDING.
--- NOTE | 2019-05-26 02:12 | NUR ---
PATIENT RESTING IN BED WITH EYES CLOSED AND NO S/S OF DISTRESS. BED IN LOWEST POSITION AND CALL LIGHT WITHIN REACH. WILL CONTINUE TO MONITOR.
[2019-05-26 04:00] VITALS: BP 122/62
[2019-05-26 05:26] LABS: BASOPHILS 0.4 % (0-2); HEMATOCRIT 39.1 % (36.0-48.0); HEMOGLOBIN 12.9 g/dL (12-16); IMMATURE GRANULOCYTES 0.3 % (0-5); MCH 29.4 pg (26.0-34.0); MCV 89.1 fL (80.0-100.0); MEAN PLATELET VOLUME 10.2 fL (7.4-10.4); MONOCYTES 9.5 % (2-11); NEUTROPHILS 52.8 % (40-80); PLATELET COUNT 171 10x3/uL (130-400); RBC 4.39 10x6/uL (4.00-5.40); RDW 12.9 % (11.5-14.5); WBC 7.2 10x3/uL (4.8-10.8)
[2019-05-26 05:59] LABS: ANION GAP 10.8 mmol/L (8-16); CALCIUM 8.4 mg/dL (8.5-10.1); CARBON DIOXIDE 28.1 mmol/L (21.0-32.0); CREATININE - SERUM 0.9 mg/dL (0.6-1.3); POTASSIUM - SERUM 3.9 mmol/L (3.5-5.1)
[2019-05-26 09:37] VITALS: BP 114/72
--- NOTE | 2019-05-26 10:06 | NUR ---
ALERT AND ORIENTED X4 SPLINT NOTED TO LLE WITH PEDAL PULSES NOTED. IV TO RT. F/A INTACT. DENIES ANY PAIN OR DISCOMFORT AT THIS TIME WITHLUNGS CTA. ENCOURAGED TO USE CALL LIGHT FOR ASSSIST
--- NOTE | 2019-05-26 11:14 | MORECARE ---
CASE MANAGEMENT DISCHARGE SUMMARY PATIENT: JEWELL DAVISON UNIT: [id number] ADM DATE: 05/24/19 AGE: 58 : 56 SEX: F ROOM/BED: D.2209 AUTHOR: ROSEY LEMUS PHYSICIAN: REFERRING PHYSICIAN: RENETTA BRIAN MD DATE OF SERVICE: 05/26/19 Discharge Plan Patient Name: JEWELL DAVISON [facility] [facility] 1960 Planned Disposition: Home Anticipated Discharge Date: Discharge Date: Expected LOS: Initial Reviewer: [email or web address] Initial Review Date: 05/26/2019 Generated: 05/26/19 12:14 pm DCPIA - Discharge Planning Initial Assessment Updated by [email or web address]: Suzie Rubio on 05/26/19 11:10 am * Is the patient Alert and Oriented? Yes * How many steps to enter\exit or inside your home? * PCP NO PCP * Preadmission Environment Home with Family * ADLs Independent * Equipment None * List name and contact numbers for known caregivers / representatives who currently or will assist patient after discharge: PARMINDER [facility] [phone] * Verbal permission to speak to the caregivers and representatives has been obtained from the patient. Yes * Community resources currently utilized None * Additional services required to return to the preadmission environment? No * Can the patient safely return to the preadmission environment? Yes * Has this patient been hospitalized within the prior 30 days at any hospital? No Patient Name: JEWELL DAVISON Page [phone] at 1114 All edits/amendments must be made on the electronic document DICTATION DATE: 05/26/19 1114 DEMOGRAPHER: RUTHIE 05/26/19 1114 RPT#: [id number] DC DATE: STATUS: ADM IN [facility] [address] [place] [address] END OF REPORT
--- NOTE | 2019-05-26 11:21 | MORECARE ---
CASE MANAGEMENT DISCHARGE SUMMARY PATIENT: JEWELL DAVISON UNIT: [id number] ADM DATE: 05/24/19 AGE: 58 : 56 SEX: F ROOM/BED: D.3760 AUTHOR: ROSEY LEMUS PHYSICIAN: REFERRING PHYSICIAN: RENETTA BRIAN MD DATE OF SERVICE: 05/26/19 Discharge Plan Patient Name: JEWELL DAVISON Facility: [facility]:[place] : 1960 Planned Disposition: Home Anticipated Discharge Date: Discharge Date: Expected LOS: Initial Reviewer: [email or web address] Initial Review Date: 05/26/2019 Generated: 05/26/19 12:20 pm Comments DCP- Discharge Planning Updated by [email or web address]: Suzie Rubio on 05/26/19 10:[address] Patient Name: JEWELL DAVISON Admission Status: ER Accout number: [id number] Admission Date: 05-24-2019 : 1960 Admission Diagnosis: Attending: RENETTA BRIAN Current LOS: 2 Anticipated DC Date: Planned Disposition: Home Primary Insurance: MEDICAID [place] PENDING Discharge Planning Comments: CM met with patient to complete initial dc planning assessment. CM educated patient on the CM role and verbal consent given by patient to complete assessment. Patient lives at home alone where she is independent with her care. At discharge patient plans to return to her son's home and feels this is a safe discharge. CM discussed availability of home health, rehab services, and medical equipment. 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 Patient doesn't have any DME equipment and doesn't have a preference of DME companies. Patient has Medicaid pending. CM can't find a DME company that will provide equipment with Medicaid pending. Patient needs a walker, bedside commode and shower chair. Patient will be non-weight bearing for 6-8 weeks. Patient stated that she may see if a family member has DME to use. CM will continue to follow and will assist as needed with dc plans/needs. Learning Developer: Suzie Rubio DCPIA - Discharge Planning Initial Assessment Updated by [email or web address]: Suzie Rubio on 05/26/19 11:10 am * Is the patient Alert and Oriented? Yes * How many steps to enter\exit or inside your home? * PCP NO PCP * Preadmission Environment Home with Family * ADLs Independent * Equipment None * List name and contact numbers for known caregivers / representatives who currently or will assist patient after discharge: [facility]- [phone] * Verbal permission to speak to the caregivers and representatives has been obtained from the patient. Yes * Community resources currently utilized None * Additional services required to return to the preadmission environment? No * Can the patient safely return to the preadmission environment? Yes * Has this patient been hospitalized within the prior 30 days at any hospital? No Last DP export: 05/26/19 10:14 am Patient Name: JEWELL DAVISON Page [phone] at 1121 All edits/amendments must be made on the electronic document DICTATION DATE: 05/26/191119 OUTBOUND SALES SPECIALIST: RUTHIE 05/26/191119 RPT#: [id number] DC DATE: STATUS: ADM IN [facility] [address] [place] [address] END OF REPORT
[2019-05-26 12:05] VITALS: BP 118/67
[2019-05-26] MEDS ORDERED: LOW DOSE ASPIRI81 M1 PO (14:12)
--- NOTE | 2019-05-26 17:00 | NUR ---
PATIENT'S IV DISCONTINUED AND VERBALIZED UNDERSTANDING OF DISCHARGE INSTRUCTIONS. STATED HAD ASSISTIVE DEVICE WITH TRANSPORTQATION WHEN SHE WENT HOME. DISCHARGED UNDER CARE OF FAMILY AND STABLE
--- NOTE | 2019-05-26 19:54 | MORECARE ---
CASE MANAGEMENT DISCHARGE SUMMARY PATIENT: JEWELL DAVISON UNIT: [id number] ADM DATE: 05/24/19 AGE: 58 : 56 SEX: F ROOM/BED: D.8520 AUTHOR: ALLANDOC PHYSICIAN: REFERRING PHYSICIAN: RENETTA BRIAN MD DATE OF SERVICE: 05/26/19 Discharge Plan Patient Name: JEWELL DAVISON Facility: [facility]:[place] : 1960 Planned Disposition: Home Anticipated Discharge Date: Discharge Date: 05/26/2019 Expected LOS: Initial Reviewer: [email or web address] Initial Review Date: 05/26/2019 Generated: 05/26/19 8:53 pm Comments DCP- Discharge Planning Updated by [email or web address]: Suzie Rubio on 05/26/19 10:[address] Patient Name: JEWELL DAVISON Admission Status: ER Accout number: [id number] Admission Date: 05-24-2019 : 1960 Admission Diagnosis: Attending: RENETTA BRIAN Current LOS: 2 Anticipated DC Date: Planned Disposition: Home Primary Insurance: MEDICAID [place] PENDING Discharge Planning Comments: CM met with patient to complete initial dc planning assessment. CM educated patient on the CM role and verbal consent given by patient to complete assessment. Patient lives at home alone where she is independent with her care. At discharge patient plans to return to her son's home and feels this is a safe discharge. CM discussed availability of home health, rehab services, and medical equipment. 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 Patient doesn't have any DME equipment and doesn't have a preference of DME companies. Patient has Medicaid pending. CM can't find a DME company that will provide equipment with Medicaid pending. Patient needs a walker, bedside commode and shower chair. Patient will be non-weight bearing for 6-8 weeks. Patient stated that she may see if a family member has DME to use. CM will continue to follow and will assist as needed with dc plans/needs. Tool Grinding Technician: Suzie Rubio DCPIA - Discharge Planning Initial Assessment Updated by [email or web address]: Suzie Rubio on 05/26/19 11:10 am * Is the patient Alert and Oriented? Yes * How many steps to enter\exit or inside your home? * PCP NO PCP * Preadmission Environment Home with Family * ADLs Independent * Equipment None * List name and contact numbers for known caregivers / representatives who currently or will assist patient after discharge: PARMINDER MILLAN [facility] [phone] * Verbal permission to speak to the caregivers and representatives has been obtained from the patient. Yes * Community resources currently utilized None * Additional services required to return to the preadmission environment? No * Can the patient safely return to the preadmission environment? Yes * Has this patient been hospitalized within the prior 30 days at any hospital? No Last DP export: 05/26/19 10:21 am Patient Name: JEWELL DAVISON Page [phone] at 1954 All edits/amendments must be made on the electronic document DICTATION DATE: 05/26/191952 REVENUE STAMP CLERK: RUTHIE 05/26/191952 RPT#: [id number] DC DATE:05/26/19 STATUS: DIS IN [facility] [address] [place] [address] END OF REPORT
== END 2019-05-26 17:00 | disposition home or self-care (01) | DRG 563 ==
LOC: D.ER 23:54 → D.MS 05-24 01:56
PROVIDERS: Emergency Medicine; Family Medicine; ADMIT Family Medicine; ATTEND Family Medicine
DX: S92.002A Unspecified fracture of left calcaneus, initial encounter for closed fracture (principal); F17.203 Nicotine dependence unspecified, with withdrawal; W10.8XXA Fall (on) (from) other stairs and steps, initial encounter; Y92.009 Unspecified place in unspecified non-institutional (private) residence as the place of occurrence of the external cause; M79.7 Fibromyalgia; S92.225A Nondisplaced fracture of lateral cuneiform of left foot, initial encounter for closed fracture; S92.245A Nondisplaced fracture of medial cuneiform of left foot, initial encounter for closed fracture; S92.23 Fracture of intermediate cuneiform; S92.325A Nondisplaced fracture of second metatarsal bone, left foot, initial encounter for closed fracture; S92.335A Nondisplaced fracture of third metatarsal bone, left foot, initial encounter for closed fracture; S92.345A Nondisplaced fracture of fourth metatarsal bone, left foot, initial encounter for closed fracture; S92.912A Unspecified fracture of left toe(s), initial encounter for closed fracture; I10 Essential (primary) hypertension

== ENCOUNTER 2019-08-10 20:57 | Emergency (ER) | payer MEDICAID ==
[~2019-08-10] VITALS: Ht 177.8 cm; Wt 81.8 kg
[~2019-08-10 20:57] MED LIST changes: +DILAUDID4 MG PO; +LOW DOSE ASPIRI81 M1 PO; +VISTARIL50 MG PO
[2019-08-10 21:03] VITALS: BP 124/81; Ht 177.8 cm; Wt 81.8 kg
[2019-08-10] MEDS ORDERED: OMNICEF300 MG PO (21:38)
[2019-08-10 21:49] LABS: BASOPHILS 0.3 % (0-2); EOSINOPHILS 1.8 % (0-7); HEMOGLOBIN 15.1 g/dL (12-16); IMMATURE GRANULOCYTES 0.3 % (0-5); LYMPHOCYTES 18.4 % (15-50); MCH 30.3 pg (26.0-34.0); MCHC 33.6 g/dL (31.0-37.0); MCV 90.2 fL (80.0-100.0); MEAN PLATELET VOLUME 9.7 fL (7.4-10.4); MONOCYTES 9.7 % (2-11); NEUTROPHILS 69.5 % (40-80); RBC 4.99 10x6/uL (4.00-5.40); RDW 12.3 % (11.5-14.5); WBC 9.9 10x3/uL (4.8-10.8)
[2019-08-10 21:50] LABS: PLATELET COUNT 240 10x3/uL (130-400)
[2019-08-10 21:53] LABS: ANION GAP 14.1 mmol/L (8-16); CALCIUM 8.6 mg/dL (8.5-10.1); CARBON DIOXIDE 25.7 mmol/L (21.0-32.0); POTASSIUM - SERUM 3.8 mmol/L (3.5-5.1)
== END 2019-08-10 22:49 | disposition home or self-care (01) ==
LOC: D.ER 20:57
PROVIDERS: Emergency Medicine
DX: J01.90 Acute sinusitis, unspecified (principal); J06.9 Acute upper respiratory infection, unspecified

== ENCOUNTER 2020-01-12 16:24 | Emergency (ER) | payer OTHER ==
[~2020-01-12 16:24] MED LIST changes: +OMNICEF300 MG PO
[2020-01-12 16:42] VITALS: Ht 177.8 cm
[2020-01-12 22:30] VITALS: BP 138/91
== END 2020-01-12 22:30 | disposition home or self-care (01) ==
LOC: D.ER 16:24
DX: S93.402A Sprain of unspecified ligament of left ankle, initial encounter (principal); M25.562 Pain in left knee; W01.0XXA Fall on same level from slipping, tripping and stumbling without subsequent striking against object, initial encounter; Y93.9 Activity, unspecified; Y92.9 Unspecified place or not applicable

== ENCOUNTER → 2020-01-24 15:21 | Outpatient (CLI) | payer OTHER | END | disposition home or self-care (01) | LOC: D.MRI 14:30 | PROVIDERS: ATTEND Nurse Practitioner Family | DX: M25.572 Pain in left ankle and joints of left foot (principal) ==